=== PATIENT | female | born 1965 | race Hispanic/Latino ===

== ENCOUNTER → 2017-04-05 | Outpatient (CLI) | payer BC ==
--- NOTE | 2017-04-05 11:36 | Diagnostic Imaging Report ---
EXAM: DXA BONE DENSITY INDICATIONS: SCREENING FOR OSTEOPOROSIS COMPARISON: Bone mineral density study 03/17/2016. FINDINGS: Proximal left femur total bone mineral density (BMD) (g/cm2):0.950 Femur T-score (standard deviation relative to young adult mean BMD): -0.1 Femur Z-score (standard deviation relative to age-matched control group):0.4 Proximal left femur neck bone mineral density (BMD) (g/cm2):0.797 Femur T-score (standard deviation relative to young adult mean BMD): -0.7 Femur Z-score (standard deviation relative to age-matched control group):0.1 Lumbar bone mineral density (BMD) (g/cm2):0.863 Lumbar T-score (standard deviation relative to young adult mean BMD): -1.7 Lumbar Z-score (standard deviation relative to age-matched control group):-0.8 Change since prior exam (%): Femur:+2.7 Spine:-0.7 CONCLUSION: 1. Bone mineral density in the left femur is classified as normal. Fracture risk is not increased. 10 year major osteoporotic fracture risk 2.3%. 2. Bone mineral density in the spine is classified as osteopenia. Fracture risk is increased. World Health Organization Classification: *The Z-score is provided for informational purposes. The T-score is preferable for clinical decisions. When comparing exams, a change of >4% is considered statistically significant. SUGGESTED RECOMMENDATIONS: Normal \T\ Osteopenia:Consideration should be given to use of calcium supplementation, daily multiple vitamins and adequate exercise, as preventive measures against osteoporosis, if clinically indicated. Osteoporosis \T\ Severe Osteoporosis:In addition to the above, consideration should be given to medical therapy against osteoporosis, if clinically indicated. Johny Archer M.D. Dictated by: Johny Archer M.D. on 04/05/2017 at 11:44 Electronically approved by: Johny Archer M.D. on 04/05/2017 at 11:44
== END ==
LOC: MAMMO 10:32
PROVIDERS: ATTEND Obstetrics & Gynecology
DX: Z12.31 Encounter for screening mammogram for malignant neoplasm of breast (principal); Z13.820 Encounter for screening for osteoporosis
CPT/HCPCS: 77080; G0202

== ENCOUNTER → 2017-05-02 | Outpatient (CLI) | payer BC ==
--- NOTE | 2017-05-03 08:25 | Diagnostic Imaging Report ---
#[id number] - [id number] #UNILATERAL RIGHT DIGITAL DIAGNOSTIC MAMMOGRAM WITH CAD WITH SPOT COMPRESSION: 05/02/2017 Comparison is made to exams dated: 04/05/2017 mammogram, 03/17/2016 mammogram and 04/01/2015 mammogram - [facility]. Current study contains 2 films. There are scattered fibroglandular elements in the right breast. Current study was also evaluated with a Computer Aided Detection (CAD) system. Focal spot compression in the area in question reveals no mass. Findings on prior mammogram therefore must have represented overlapping tissue. No significant masses, calcifications, or other findings are seen in the breast. There has been no significant interval change. IMPRESSION: BENIGN There is no mammographic evidence of malignancy. A 1 year screening mammogram is recommended. The patient will be notified by letter of the results. Joe Molina Jr., D.O. cw/:05/02/2017 12:20:54 Public Works Manager: Liliana AGRAWAL(R)(M), [facility] letter sent: Normal Exam Mammogram BI-RADS: 2 Benign
== END ==
LOC: MAMMO 10:51
PROVIDERS: ATTEND Obstetrics & Gynecology
DX: R92.8 Other abnormal and inconclusive findings on diagnostic imaging of breast (principal); N64.59 Other signs and symptoms in breast

== ENCOUNTER → 2018-05-04 | Outpatient (CLI) | payer BC | LOC: MAMMO 10:57 | PROVIDERS: ATTEND Obstetrics & Gynecology | DX: Z12.31 Encounter for screening mammogram for malignant neoplasm of breast (principal) | CPT/HCPCS: 77067 ==

== ENCOUNTER → 2019-05-10 | Outpatient (CLI) | payer BC | LOC: MAMMO 08:33 | PROVIDERS: ATTEND Obstetrics & Gynecology | DX: Z12.31 Encounter for screening mammogram for malignant neoplasm of breast (principal) | CPT/HCPCS: 77067 ==

== ENCOUNTER → 2020-05-15 | Outpatient (CLI) | payer BC | LOC: MAMMO 12:24 | PROVIDERS: ATTEND Obstetrics & Gynecology | DX: Z12.31 Encounter for screening mammogram for malignant neoplasm of breast (principal) | CPT/HCPCS: 77067 ==

== ENCOUNTER → 2021-05-21 | Outpatient (CLI) | payer BC | LOC: MAMMO 09:42 | PROVIDERS: ATTEND Obstetrics & Gynecology | DX: Z12.31 Encounter for screening mammogram for malignant neoplasm of breast (principal) | CPT/HCPCS: 77067 ==

== ENCOUNTER → 2021-06-11 | Outpatient (CLI) | payer BC | LOC: US 12:56 | PROVIDERS: ATTEND Obstetrics & Gynecology | DX: R92.2 Inconclusive mammogram (principal) ==

== ENCOUNTER → 2022-06-14 | Outpatient (CLI) | payer BC | LOC: MAMMO 10:09 | PROVIDERS: ATTEND Obstetrics & Gynecology | DX: Z12.31 Encounter for screening mammogram for malignant neoplasm of breast (principal); M85.88 Other specified disorders of bone density and structure, other site | CPT/HCPCS: 77067; 77080 ==

== ENCOUNTER → 2023-08-04 | Outpatient (REF) | payer BC | LOC: MAMMO 09:17 | PROVIDERS: ATTEND Obstetrics & Gynecology | DX: Z12.31 Encounter for screening mammogram for malignant neoplasm of breast (principal) | CPT/HCPCS: 77067 ==